=== PATIENT | female | born 1975 | race Caucasian/White ===

== ENCOUNTER 2016-10-28 17:21 | Emergency (ER) | payer MEDICAID ==
[2016-10-28 17:46] VITALS: BP 147/78
--- NOTE | 2016-10-28 20:37 | ERNOTE ---
Date of Service: 10/28/16 Time Seen by Provider: 10/28/16 20:12 Stated Complaint: COUGH Presenting Symptoms:: cough Source: patient Exam Limitations: no limitations Immunizations: IMMUNIZATION HX Immunizations Up to Date Yes History of Influenza Vaccine Yes Hx Pneumococcal Vaccination No Allergies/Adverse Reactions: Allergies azithromycin [From Zithromax] Adverse Reaction (Mild, Verified 10/28/16 17:47) rash ciprofloxacin [From Cipro] Adverse Reaction (Mild, Verified 07/09/16 13:19) "bad diarrhea" ciprofloxacin HCl [From Cipro] Adverse Reaction (Mild, Verified 07/09/16 13:19) "bad diarrhea" doxycycline Adverse Reaction (Mild, Verified 10/28/16 17:47) rash oxycodone HCl [From Percocet] Adverse Reaction (Mild, Verified 10/28/16 17:47) rash Sulfa (Sulfonamide Antibiotics) Adverse Reaction (Mild, Verified 10/28/16 17:47) doesnt work, had it alot as a kid for uti's Home Medications: HOME MEDICATIONS Topiramate [Topamax] 150 mg PO BID 08/23/13 [Last Taken 11/17/14] Medroxyprogesterone Acetate [Depo-Provera Contraceptive] 150 mg IM Q90D [Last Taken Unknown] Albuterol Sulfate [Proair Hfa] 1 puff IH QID PRN 11/01/14 [Last Taken Unknown] Sumatriptan Succinate [Imitrex] 100 mg PO DAILY PRN 11/01/14 [Last Taken Unknown ] Levetiracetam [Keppra] 1,500 mg PO BID 06/23/15 [Last Taken Unknown] Solifenacin Succinate [Vesicare] 5 mg PO DAILY 12/14/15 [Last Taken Unknown] Atorvastatin Calcium [Lipitor] 20 mg PO HS 06/23/16 [Last Taken Unknown] Tizanidine HCl 4 mg PO TID PRN 06/23/16 [Last Taken Unknown] Sulindac 150 mg PO BID 06/25/16 [Last Taken Unknown] ALPRAZolam [Xanax] 0.25 mg PO TID PRN 10/28/16 [Last Taken Unknown] Doxycycline Monohydrate 100 mg PO BID #20 tablet 10/28/16 [Last Taken Unknown] Omeprazole 40 mg PO BID PRN 10/28/16 [Last Taken Unknown] Pregabalin [Lyrica] 150 mg PO BID 10/28/16 [Last Taken Unknown] predniSONE [Prednisone] 3 tab PO DAILY #9 tab 10/28/16 [Last Taken Unknown] - History of Present Ilness Narrative: Pt. comes in with c/o sore throat, sinus congestion, fever, cough, rhinorrhea, and B ear pain. Pt. denies any SOB, CP, NVD, or other symptoms. Pt. denies any prehospital treatment, alleviating factors, or aggravating factors. Review of Systems - Review of Systems Constitutional: Present: fever, chills, fatigue, malaise EYE: Present: no symptoms reported ENT: Present: ear pain, nose congestion, nasal drainage, sore throat Respiratory: Present: shortness of breath, cough, wheezing. Absent: orthopnea, stridor Cardiology: Present: no symptoms reported. Absent: chest pain, palpitations, edema Gastrointestinal/Abdominal: Present: no symptoms reported. Absent: nausea, vomiting, diarrhea Genitourinary: Present: no symptoms reported. Absent: frequency, decreased urinary output Musculoskeletal: Present: no symptoms reported. Absent: back pain, joint pain Skin: Present: no symptoms reported. Absent: rash, change in color Neurological: Present: no symptoms reported. Absent: headache, dizziness/light- headedness All Other Systems: All systems neg except as marked - Patient's Past Medical History Patient History - Medical: Fibromyalgia, GERD, Kidney stone, Migraines, Seizures , UTI'S Patient History - Cardiac/Respiratory: Asthma, Bronchitis, Hypertension, Hyperlipidemia Patient History - Cancer: No Hx of Cancer Patient History - Surgical Procedures: Cholecystectomy, Hysterectomy, T & A, Other - Family History Father Family History - Medical: No pertinent hx Family History - Cardiac/Respiratory: Coronary Heart Disease Sister Family History - Medical: No pertinent hx, Other Family History - Cardiac/Respiratory: No pertinent hx Mother Family History - Medical: No pertinent hx Family History - Cardiac/Respiratory: No pertinent hx - Social History Living Situations: home Does anyone smoke in the home?: Yes Smoking Status: Current every day smoker Alcohol Use: none Drug Use: none Physical Exam - Physical Exam General Appearance: Present: wd/wn, alert, no apparent distress Eye Exam: Normal inspection: bilateral, PERRL: bilateral, EOMI: bilateral Ears, Nose, Throat: Present: nasal congestion, sinus pain/drainage, pharyngeal erythema. Absent: abnormal TM (R), abnormal TM (L) Neck: Present: normal inspection, nontender. Absent: lymphadenopathy (R), lymphadenopathy (L) Respiratory: Present: no respiratory distress, no accessory muscle use, chest nontender, lungs clear, decreased breath sounds Cardiovascular/Chest: Present: regular rate, rhythm, no murmur, normal peripheral pulses Gastrointestinal/Abdominal: Present: normal bowel sounds, nontender, nondistended, soft, no organomegaly Back Exam: Present: normal inspection, normal range of motion, no CVA tenderness , no vertebral tenderness Extremity Exam: Present: normal inspection, non-tender, no edema, normal range of motion Neurological Exam: Present: alert, oriented, normal mood/affect, no motor/ sensory deficits, 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 Absent: pallor, skin rash ED Progress - Date and Time Seen: Date and Time: 10/28/16 20:30 Pt. does not appear particularly ill but she has multiple symptoms for a long time and does have sinus congestion and pharyngitis on exam with bronchitis so will treat with ABX treatment. After this provider finished assessment she called for RN and told RN that she needs fluid because she was dehydrated as she has nausea. She denied this for me and does not appear dehydrated. - Results and Orders Patient's Lab Results:: I have reviewed the patient's lab results. - Vital Signs Patient's Vital Signs:: I have reviewed the patient's vital signs. Vital Signs: Vital Signs 10/28/16 17:39 Temperature 36.6 C Pulse Rate 102 H Respiratory 18 Rate Blood Pressure 147/78 O2 Sat by Pulse 99 Oximetry - Progress/Reassessment Chief Complaint: Upper Respiratory Symptoms Departure - Departure Clinical Impression: Bronchitis Sinusitis Qualifiers: Sinusitis location: frontal Chronicity: acute Recurrence: non-recurrent Qualified Code(s): J01.10 - Acute frontal sinusitis, unspecified Pharyngitis Qualifiers: Pharyngitis/tonsillitis etiology: unspecified etiology Qualified Code(s): J02.9 - Acute pharyngitis, unspecified Condition: Good Instructions: Upper Respiratory Infection, Adult, [id number] Additional Instructions: Please follow up with primary provider in 2-3 days. Referrals: Demetrio Marte MD [Primary Care Provider] - Prescriptions: Doxycycline Monohydrate 100 mg PO BID #20 tablet predniSONE [Prednisone] 3 tab PO DAILY #9 tab
== END 2016-10-28 21:01 | disposition home or self-care (01) ==
LOC: ER 17:21
DX: J20.9 Acute bronchitis, unspecified (principal); J01.10 Acute frontal sinusitis, unspecified; J02.9 Acute pharyngitis, unspecified; F17.210 Nicotine dependence, cigarettes, uncomplicated; Z90.49 Acquired absence of other specified parts of digestive tract; Z90.710 Acquired absence of both cervix and uterus; M79.7 Fibromyalgia

== ENCOUNTER 2017-03-12 21:14 | Emergency (ER) | payer MEDICAID ==
--- OUTSIDE RECORDS SUMMARY | 2017-03-12 22:44 | XMS REPORT | Continuity of Care Document ---
:1975 Author Organization [facility] ([facility]) Address [place] [address] Phone [phone] Care Team Providers Name Role Phone Al Interiano Primary Care Provider [phone] Source Comments This disclosure is being made pursuant to the Care Everywhere program, applicable federal and state laws, and may not contain all informaitonavailable regarding this patient.[facility] ([facility]) Active Allergies and Adverse Reactions Allergen Noted Date Severity Reactions Comments Azithromycin Urticaria (Hives) Doxycycline Urticaria (Hives) Lamotrigine Urticaria (Hives) Lorazepam 09/29/2012 Nausea & Vomiting Oxycodone Urticaria (Hives) Current Medications Prescription Sig. Disp. Refills Start Date End Date Status Levetiracetam (KEPPRA) Take 1,000 mg by Active 1,000 mg tablet mouth 2 times daily. topiramate (TOPAMAX) Take 150 mg by mouth Active 100 mg tablet 2 times daily. hydrOXYzine pamoate Take 25 mg by mouth Active (VISTARIL) 25 mg every 4 hours as capsule needed. LORATADINE (CLARITIN Take by mouth Active PO) daily. ACETAMINOPHEN (TYLENOL Take by mouth as Active PO) needed. norethindrone 5 mg Take 1 Tab by mouth 30 Tab 6 11/02/2012 Active tablet daily. Indications: Add back for Depo-Lupron ATORVASTATIN CALCIUM Take by mouth. Active (LIPITOR PO) HYDROcodone-acetaminoph Take 1 Tab by mouth Active en 5-325 mg per tablet every 6 hours as needed. OXYBUTYNIN CHLORIDE PO Take by mouth. Active polyethylene glycol Take 17 g by mouth 510 g 11 01/06/2013 Active 3350 (MIRALAX) 17 daily. Indications: gram/dose powder CONSTIPATION docusate 100 mg capsule Take 1 Cap by mouth 60 Cap 3 01/06/2013 Active 2 times daily. Indications: CONSTIPATION ACAI/GREEN Take by mouth. Active TEA/GINSNG/CHROMIUM (ACAI WEIGHT CONTROL PO) cyclobenzaprine 10 mg Take 1 Tab by mouth 30 Tab 1 04/13/2013 Active tablet 3 times daily as needed. Indications: FIBROMYALGIA gabapentin 600 mg Take 1 Tab by mouth 90 Tab 3 04/13/2013 Active tablet 3 times daily. Take 1 tablet three times daily Indications: NEUROPATHIC PAIN Active Problems Problem Noted Date Fibromyalgia 01/04/2013 Marijuana abuse 01/04/2013 Seizure disorder 04/13/2012 Overview: Grand Mal Seizures- diagnosed in ; eclampsia Myofascial pain vs pain from adhesions 10/16/2011 Tobacco user Endometriosis Overview: s/p hyst& bso, has ovarian remnants. Stable complex cyst on ultrasound, possibly tubal? Plan is for no more ultrasounds unless sx change. Migraine, unspecified, without mention of intractable migraine without mention of status migrainosus Overview: w/ aura asthma Immunizations Name Dates Previously Given Next Due Influenza, PF 09/29/2012 Pneumococcal Polysaccharide, PPSV23 (Pneumovax 23) 12/06/2012 Tdap 09/29/2012 Social History Tobacco Use Types Packs/Day Years Used Date Current Every Day Smoker 1 22 Smokeless Tobacco: Never Used Tobacco Cessation:Ready to Quit: No; Counseling Given: Yes Comments: Alcohol Use Drinks/Week oz/Week Comments No 0 Standard drinks or equivalent 0.0 Last Filed Vital Signs Vital Sign Reading Time Taken Blood Pressure 150/90 04/13/2013 8:00 AM CDT Pulse 95 04/13/2013 8:00 AM CDT Temperature 36.5 C (97.7 F) 01/06/2013 9:25 AM CDT Respiratory Rate 16 01/04/2013 11:46 AM CDT Height 1.626 m (5' 4.02") 01/04/2013 11:46 AM CDT Weight 80.1 kg (176 lb 9.4 oz) 04/13/2013 8:00 AM CDT Body Mass Index 30.3 04/13/2013 8:00 AM CDT Oxygen Saturation 99% 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
[2017-03-12] MEDS ORDERED: KETOROLAC TROMETHAMINE 30 MG/ML VIAL IV ONE (22:47)
[2017-03-12] MEDS ORDERED: NORMAL SALINE 1,000 ML IV ONE (22:47)
[2017-03-12] MEDS ORDERED: METHYLPREDNISOLONE SOD SUCC/PF 125 MG/2 ML VIAL IV ONE (22:47)
[2017-03-12] MEDS ORDERED: ORPHENADRINE CITRATE 30 MG/ML VIAL IV ONE (22:47)
[2017-03-12] MEDS ORDERED: ONDANSETRON HCL/PF 2 MG/ML VIAL IV ONE (22:47)
--- NOTE | 2017-03-12 22:54 | ERNOTE ---
Headache ER HPI - General Presenting Symptoms: headache Time Seen by Provider: 03/12/17 22:35 Source: patient Exam Limitations: no limitations - Immun/Allergies/Home Medications Immunizations: IMMUNIZATION HX Immunizations Up to Date Yes History of Influenza Vaccine Yes Hx Pneumococcal Vaccination Yes Allergies/Adverse Reactions: Allergies azithromycin [From Zithromax] Adverse Reaction (Mild, Verified 10/28/16 17:47) rash ciprofloxacin [From Cipro] Adverse Reaction (Mild, Verified 07/09/16 13:19) "bad diarrhea" ciprofloxacin HCl [From Cipro] Adverse Reaction (Mild, Verified 07/09/16 13:19) "bad diarrhea" doxycycline Adverse Reaction (Mild, Verified 10/28/16 17:47) rash oxycodone HCl [From Percocet] Adverse Reaction (Mild, Verified 10/28/16 17:47) rash Sulfa (Sulfonamide Antibiotics) Adverse Reaction (Mild, Verified 10/28/16 17:47) doesnt work, had it alot as a kid for uti's Home Medications: HOME MEDICATIONS Topiramate [Topamax] 150 mg PO BID 08/23/13 [Last Taken 11/17/14] Medroxyprogesterone Acetate [Depo-Provera Contraceptive] 150 mg IM Q90D [Last Taken Unknown] Albuterol Sulfate [Proair Hfa] 1 puff IH QID PRN 11/01/14 [Last Taken Unknown] levETIRAcetam [Keppra] 1,500 mg PO BID 06/23/15 [Last Taken Unknown] Solifenacin Succinate [Vesicare] 5 mg PO DAILY 12/14/15 [Last Taken Unknown] Atorvastatin Calcium [Lipitor] 20 mg PO HS 06/23/16 [Last Taken Unknown] tiZANidine HCL [Tizanidine HCl] 4 mg PO TID PRN 06/23/16 [Last Taken Unknown] ALPRAZolam [Xanax] 0.25 mg PO TID PRN 10/28/16 [Last Taken Unknown] Omeprazole 40 mg PO BID PRN 10/28/16 [Last Taken Unknown] Pregabalin [Lyrica] 150 mg PO BID 10/28/16 [Last Taken Unknown] Cephalexin Monohydrate [Keflex] 500 mg PO DAILY 03/12/17 [Last Taken Unknown] Diclofenac Sodium [Voltaren] 50 mg PO TID PRN 03/12/17 [Last Taken Unknown] Rizatriptan Benzoate [Maxalt] 5 mg PO PRN PRN 03/12/17 [Last Taken Unknown] - Pain Pain Score: 8 - History of Present Illness Narrative: has had headache for 4 days has tried her home medications and has not had any results Review of Systems - Review of Systems Constitutional: Absent: recent illness, fever, chills EYE: Absent: eye pain, vision changes ENT: Absent: nose congestion, sore throat Respiratory: Present: no symptoms reported Cardiology: Present: no symptoms reported Gastrointestinal/Abdominal: Present: nausea. Absent: vomiting, abdominal pain Genitourinary: Present: no symptoms reported Musculoskeletal: Present: no symptoms reported Skin: Present: no symptoms reported Neurological: Present: no symptoms reported Endocrine: Present: no symptoms reported Hematologic/Lymphatic: Present: no symptoms reported Psych: Present: no symptoms reported - Patient's Past Medical History Patient History - Medical: Fibromyalgia, GERD, Kidney stone, Migraines, Seizures , UTI'S Patient History - Cardiac/Respiratory: Asthma, Hypertension, Hyperlipidemia Patient History - Cancer: No Hx of Cancer Patient History - Surgical Procedures: Cholecystectomy, Hysterectomy, T & A, Other Patient History - Other: None - Family History Father Family History - Medical: No pertinent hx Family History - Cardiac/Respiratory: Coronary Heart Disease Sister Family History - Medical: No pertinent hx, Other Family History - Cardiac/Respiratory: No pertinent hx Mother Family History - Medical: No pertinent hx Family History - Cardiac/Respiratory: No pertinent hx - Social History Living Situations: home Abuse History: No History of abuse Psych History: No pertinent hx Does anyone smoke in the home?: Yes Smoking Status: Current every day smoker Patient requests Smoking Cessation Consult: No Initiate information on Smoking Cessation: No Alcohol Use: none Drug Use: none - Immunizations Immunizations Up to Date: Yes Hx Pneumococcal Vaccination: Yes History of Influenza Vaccine: Yes Physical Exam - Physical Exam General Appearance: Present: wd/wn, alert, mild distress Eye Exam: Normal inspection: bilateral, PERRL: bilateral, EOMI: bilateral Ears, Nose, Throat: Present: normal ENT inspection, normal pharynx Neck: Present: normal inspection, nontender, supple Respiratory: Present: no respiratory distress, normal breath sounds, lungs clear Cardiovascular/Chest: Present: regular rate, rhythm, no murmur, normal peripheral pulses Gastrointestinal/Abdominal: Present: nontender, nondistended, soft Back Exam: Present: normal inspection, normal range of motion Extremity Exam: Present: normal inspection, normal range of motion, no edema Neurological Exam: Present: alert, oriented, normal mood/affect, no motor/ sensory deficits Skin Exam: Present: normal color, warm/dry Lymphatic Exam: Present: no adenopathy ED Progress - Vital Signs Patient's Vital Signs:: I have reviewed the patient's vital signs. Vital Signs: Vital Signs 03/12/17 22:00 Temperature 37.8 C H Pulse Rate 85 Respiratory 18 Rate Blood Pressure 134/103 O2 Sat by Pulse 98 Oximetry - Progress/Reassessment Chief Complaint: Headache Progress:: Improved Departure Clinical Impression: Headache Qualifiers: Headache type: tension-type Headache chronicity pattern: acute headache Intractability: not intractable Qualified Code(s): G44.209 - Tension-type headache, unspecified, not intractable - Departure Disposition: Home Follow Up Needed Condition: Good Instructions: Recurrent Migraine Headache Additional Instructions: See your regular doctor if headache returns. Return to ER as needed Referrals: Demetrio Marte MD [Primary Care Provider] -
[2017-03-12] MEDS ORDERED: KETOROLAC TROMETHAMINE 30 MG/ML VIAL ONE (23:12)
[2017-03-12] MEDS ORDERED: METHYLPREDNISOLONE SOD SUCC/PF 125 MG/2 ML VIAL ONE (23:12)
[2017-03-12] MEDS ORDERED: ONDANSETRON HCL/PF 2 MG/ML VIAL ONE (23:12)
[2017-03-12] MEDS ORDERED: ORPHENADRINE CITRATE 30 MG/ML VIAL ONE (23:13)
[2017-03-13 00:27] VITALS: BP 148/92
== END 2017-03-13 00:25 | disposition home or self-care (01) ==
LOC: ER 21:14
DX: G44.209 Tension-type headache, unspecified, not intractable (principal); M79.7 Fibromyalgia; K21.9 Gastro-esophageal reflux disease without esophagitis; Z87.442 Personal history of urinary calculi; Z72.0 Tobacco use; J45.909 Unspecified asthma, uncomplicated; I10 Essential (primary) hypertension; E78.5 Hyperlipidemia, unspecified; Z87.440 Personal history of urinary (tract) infections

== ENCOUNTER 2017-03-24 15:27 | Emergency (ER) | payer MEDICAID ==
[2017-03-24 15:43] VITALS: BP 134/98
--- OUTSIDE RECORDS SUMMARY | 2017-03-24 16:58 | XMS REPORT | Continuity of Care Document ---
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
[2017-03-24] MEDS ORDERED: diphenhydrAMINE HCL 50 MG/ML VIAL ONE (17:08)
[2017-03-24] MEDS ORDERED: KETOROLAC TROMETHAMINE 30 MG/ML VIAL ONE (17:09)
[2017-03-24] MEDS ORDERED: METOCLOPRAMIDE HCL 5 MG/ML VIAL ONE (17:09)
== END 2017-03-24 18:53 | disposition home or self-care (01) ==
LOC: ER 15:27
DX: G43.009 Migraine without aura, not intractable, without status migrainosus (principal)

== ENCOUNTER 2017-06-10 16:15 | Emergency (ER) | payer SELFPAY ==
[2017-06-10 16:33] VITALS: BP 143/85
--- NOTE | 2017-06-10 17:03 | ERNOTE ---
Upper Extremity HPI - Narrative Date of Service: 06/10/17 - General Extremities Pain Location: wrist: right Time Seen by Provider: 06/10/17 16:42 Source: patient Exam Limitations: no limitations - Immun/Allergies/Home Medications Immunizations: IMMUNIZATION HX Immunizations Up to Date Yes History of Influenza Vaccine No Hx Pneumococcal Vaccination No Allergies/Adverse Reactions: Allergies Allergy/AdvReac Type Severity Reaction Status Date / Time azithromycin [From Zithromax] AdvReac Mild rash Verified 06/10/17 16:33 ciprofloxacin [From Cipro] AdvReac Mild "bad Verified 06/10/17 16:33 diarrhea" ciprofloxacin HCl AdvReac Mild "bad Verified 06/10/17 16:33 [From Cipro] diarrhea" doxycycline AdvReac Mild rash Verified 06/10/17 16:33 Sulfa (Sulfonamide AdvReac Mild doesnt Verified 06/10/17 16:33 Antibiotics) work, had it alot as a kid for uti's Home Medications: HOME MEDICATIONS Topiramate [Topamax] 150 mg PO BID 08/23/13 [Last Taken 11/17/14] Medroxyprogesterone Acetate [Depo-Provera Contraceptive] 150 mg IM Q90D [Last Taken Unknown] Albuterol Sulfate [Proair Hfa] 1 puff IH QID PRN 11/01/14 [Last Taken Unknown] levETIRAcetam [Keppra] 1,500 mg PO BID 06/23/15 [Last Taken Unknown] Solifenacin Succinate [Vesicare] 5 mg PO DAILY 12/14/15 [Last Taken Unknown] Atorvastatin Calcium [Lipitor] 20 mg PO HS 06/23/16 [Last Taken Unknown] tiZANidine HCL [Tizanidine HCl] 4 mg PO TID PRN 06/23/16 [Last Taken Unknown] ALPRAZolam [Xanax] 0.25 mg PO TID PRN 10/28/16 [Last Taken Unknown] Omeprazole 40 mg PO BID PRN 10/28/16 [Last Taken Unknown] Pregabalin [Lyrica] 150 mg PO BID 10/28/16 [Last Taken Unknown] Cephalexin Monohydrate [Keflex] 500 mg PO DAILY 03/12/17 [Last Taken Unknown] Diclofenac Sodium [Voltaren] 50 mg PO TID PRN 03/12/17 [Last Taken Unknown] Naproxen [Naprosyn] 500 mg PO BID PRN #60 tab 06/10/17 [Last Taken Unknown] - History of Present Illness Narrative: Pt. comes in with c/o R wrist pain after falling in her garage yesterday. Pt. states that she placed Ice on it and it helped but did not relieve the pain. Pt. denies any numbness, tingling, SOB, CP, NVD, fever, recent illness but states that movement exacerbates the pain. Review of Systems - Review of Systems Constitutional: Present: no symptoms reported. Absent: recent illness, fever, chills, weakness, fatigue, malaise EYE: Present: no symptoms reported ENT: Present: no symptoms reported Respiratory: Present: no symptoms reported. Absent: shortness of breath, cough , wheezing Cardiology: Present: no symptoms reported. Absent: chest pain, palpitations, edema Gastrointestinal/Abdominal: Present: no symptoms reported Genitourinary: Present: no symptoms reported Musculoskeletal: Present: joint pain - R wrist Neurological: Present: no symptoms reported. Absent: headache, dizziness/light- headedness, numbness, tingling - Patient's Past Medical History Patient History - Medical: Fibromyalgia, GERD, Kidney stone, Migraines, Seizures , UTI'S Patient History - Cardiac/Respiratory: Asthma, Hyperlipidemia Patient History - Cancer: No Hx of Cancer Patient History - Surgical Procedures: Cholecystectomy, Hysterectomy, T & A, Other Patient History - Other: None LMP (females 10-50): other - Family History Father Family History - Medical: No pertinent hx Family History - Cardiac/Respiratory: Coronary Heart Disease Sister Family History - Medical: No pertinent hx, Other Family History - Cardiac/Respiratory: No pertinent hx Mother Family History - Medical: No pertinent hx Family History - Cardiac/Respiratory: No pertinent hx - Social History Living Situations: home Abuse History: No History of abuse Psych History: No pertinent hx Does anyone smoke in the home?: Yes Alcohol Use: none Drug Use: none - Immunizations Immunizations Up to Date: Yes Hx Pneumococcal Vaccination: No History of Influenza Vaccine: No Physical Exam - Physical Exam General Appearance: Present: wd/wn, alert, no apparent distress Head Exam: Present: normal inspection, no evidence of injury Eye Exam: Normal inspection: bilateral Neck: Absent: lymphadenopathy (R), lymphadenopathy (L) Respiratory: Present: no respiratory distress, normal breath sounds, no accessory muscle use, chest nontender, lungs clear Cardiovascular/Chest: Present: regular rate, rhythm, no murmur, normal peripheral pulses Back Exam: Present: normal inspection Extremity Exam: Present: normal range of motion - passive pain with active movement., no edema. Absent: joint swelling Neurological Exam: Present: alert, oriented, normal mood/affect, no motor/ sensory deficits Skin Exam: Present: normal color, warm/dry. Absent: pallor, skin rash ED Progress - Date and Time Seen: Date and Time: 06/10/17 17:21 L wrsit xray interpreted by this provider as smooth appearing bony island off of the ulna on oblique view while this could be fracture feel that it is most likely calcification involving the ulnar tendon. 06/10/17 17:23 - Vital Signs Patient's Vital Signs:: I have reviewed the patient's vital signs. Vital Signs: Vital Signs 06/10/17 16:30 Temperature 36.8 C Pulse Rate 118 H Respiratory 16 Rate Blood Pressure 143/85 O2 Sat by Pulse 97 Oximetry - Progress/Reassessment Chief Complaint: Upper Extremity Injury/Problem Progress:: Unchanged Departure Clinical Impression: Tendonitis - Departure Disposition: Home self-care Condition: Good Instructions: De Quervain Tenosynovitis Additional Instructions: Please wear brace at all times and follow up with your primary in 2-3 days. Referrals: Demetrio Marte MD [Primary Care Provider] - Prescriptions: Naproxen [Naprosyn] 500 mg PO BID PRN #60 tab PRN Reason: Pain
== END 2017-06-10 17:37 | disposition home or self-care (01) ==
LOC: ER 16:15
PROC: 2W3EX1Z Immobilization of Right Hand using Splint (ICD-10-PCS; principal; 2017-06-10)
DX: M77.9 Enthesopathy, unspecified (principal); W19.XXXA Unspecified fall, initial encounter; Y93.9 Activity, unspecified; Y92.008 Other place in unspecified non-institutional (private) residence as the place of occurrence of the external cause

== ENCOUNTER 2017-07-16 13:12 | Emergency (ER) | payer MEDICAID ==
--- NOTE | 2017-07-16 13:42 | ERNOTE ---
Neuro HPI ER Record Presenting Symptoms: other Time Seen by Provider: 07/16/17 13:23 Source: patient Exam Limitations: no limitations Immunizations: IMMUNIZATION HX Immunizations Up to Date Yes History of Influenza Vaccine No Hx Pneumococcal Vaccination No Allergies/Adverse Reactions: Allergies Allergy/AdvReac Type Severity Reaction Status Date / Time azithromycin [From Zithromax] AdvReac Mild rash Verified 07/16/17 13:27 ciprofloxacin [From Cipro] AdvReac Mild "bad Verified 07/16/17 13:27 diarrhea" ciprofloxacin HCl AdvReac Mild "bad Verified 07/16/17 13:27 [From Cipro] diarrhea" doxycycline AdvReac Mild rash Verified 07/16/17 13:27 Sulfa (Sulfonamide AdvReac Mild doesnt Verified 07/16/17 13:27 Antibiotics) work, had it alot as a kid for uti's Home Medications: HOME MEDICATIONS Topiramate [Topamax] 150 mg PO BID 08/23/13 [Last Taken 11/17/14] Medroxyprogesterone Acetate [Depo-Provera Contraceptive] 150 mg IM Q90D [Last Taken Unknown] levETIRAcetam [Keppra] 1,500 mg PO BID 06/23/15 [Last Taken Unknown] Solifenacin Succinate [Vesicare] 5 mg PO DAILY 12/14/15 [Last Taken Unknown] Atorvastatin Calcium [Lipitor] 20 mg PO HS 06/23/16 [Last Taken Unknown] tiZANidine HCL [Tizanidine HCl] 4 mg PO TID PRN 06/23/16 [Last Taken Unknown] ALPRAZolam [Xanax] 0.25 mg PO TID PRN 10/28/16 [Last Taken Unknown] Omeprazole 40 mg PO BID PRN 10/28/16 [Last Taken Unknown] Pregabalin [Lyrica] 150 mg PO BID 10/28/16 [Last Taken Unknown] Methenamine Mandelate 500 mg PO DAILY 07/16/17 [Last Taken Unknown] Nortriptyline HCl [Pamelor] 50 mg PO HS 07/16/17 [Last Taken Unknown] Promethazine HCl [Phenergan (Promethazine)] 25 mg PO PRN PRN 07/16/17 [Last Taken Unknown] - History of Present Illness Narrative: Patient has a history of seizures, is on medication and gets seizures about once a year. She states that they are brought on by stress and she has a lot of stress recently. She denies any recent illness, no missed medications, no head injury. A friend reports that she was sitting with friends when the patient started to have a generalized seizure lasting about five minutes with about 5 minutes of confusion afterwards. Patient feels back to normal now, denies any incontinence , no injury Review of Systems - Review of Systems Constitutional: Absent: recent illness, fever EYE: Absent: double vision ENT: Present: nasal drainage. Absent: sore throat Respiratory: Present: cough. Absent: shortness of breath Cardiology: Absent: chest pain Gastrointestinal/Abdominal: Absent: nausea, vomiting, diarrhea, abdominal pain Genitourinary: Present: no symptoms reported. Absent: frequency, dysuria Musculoskeletal: Absent: back pain Neurological: Present: See HPI, headache, seizure - Patient's Past Medical History Patient History - Medical: Fibromyalgia, GERD, Kidney stone, Migraines, Seizures , UTI'S Patient History - Cardiac/Respiratory: Asthma, Hyperlipidemia Patient History - Cancer: No Hx of Cancer Patient History - Surgical Procedures: Cholecystectomy, Hysterectomy, T & A, Other Patient History - Other: None - Family History Father Family History - Medical: No pertinent hx Family History - Cardiac/Respiratory: Coronary Heart Disease Sister Family History - Medical: No pertinent hx, Other Family History - Cardiac/Respiratory: No pertinent hx Mother Family History - Medical: No pertinent hx Family History - Cardiac/Respiratory: No pertinent hx - Social History Living Situations: home Abuse History: No History of abuse Psych History: No pertinent hx Does anyone smoke in the home?: Yes Have you smoked in the past 12 months: Yes Alcohol Use: none Drug Use: none - Immunizations Immunizations Up to Date: Yes Hx Pneumococcal Vaccination: No History of Influenza Vaccine: No Physical Exam - Physical Exam General Appearance: Present: wd/wn, alert, no apparent distress Head Exam: Present: normal inspection, no evidence of injury Eye Exam: Normal inspection: bilateral, PERRL: bilateral Ears, Nose, Throat: Present: normal ENT inspection, normal pharynx Neck: Present: normal inspection, nontender, supple, full range of motion Respiratory: Present: no respiratory distress, normal breath sounds, no accessory muscle use, lungs clear Cardiovascular/Chest: Present: regular rate, rhythm, no murmur Gastrointestinal/Abdominal: Present: nontender, nondistended Extremity Exam: Present: no edema Neurological Exam: Present: alert, oriented, normal mood/affect, no motor/ sensory deficits Skin Exam: Present: normal color, warm/dry ED Progress - Results and Orders Patient's Lab Results:: I have reviewed the patient's lab results. - Vital Signs Patient's Vital Signs:: I have reviewed the patient's vital signs. Vital Signs: Vital Signs 07/16/17 07/16/17 13:14 13:28 Temperature 36.6 C 36.6 C Pulse Rate 118 H 112 H Respiratory 34 H 16 Rate Blood Pressure 160/90 160/93 O2 Sat by Pulse 95 95 Oximetry - Progress/Reassessment Chief Complaint: Seizure Activity Progress Note-Subjective: 07/16/17 15:09 discussed test results, UA possible infection vs contamination, discussed treating vs waiting for culture as patient has no symptoms and allergies to multiple meds, patient would like to wait Departure Clinical Impression: Seizure - Departure Disposition: Home self-care Condition: Good Instructions: Seizure, Adult, [id number] Additional Instructions: follow up with your neurologist as scheduled next month
[2017-07-16 13:48] LABS: Hemoglobin 12.3 gm/dL (12.5-16.0); Mean Cell Volume 89.4 fl (78-100); Mean Corpuscular Hemoglobin 29.7 pg (27-31); Mean Corpuscular Hgb Conc 33.2 g/dl (32-36); Mean Platelet Volume 9.7 fl (6.0-9.5); Neutrophil # 6.5 K/mm3 (1.3-6.0); Neutrophil % 65.9 % (42-75.0); Platelet Count 344 K/mm3 (150-450); Red Blood Count 4.14 M/mm3 (4.2-5.4); Red Cell Distribution Width 13.1 % (11.5-14.0); White Blood Count 9.9 K/mm3 (4.0-10.5)
[2017-07-16] MEDS ORDERED: ACETAMINOPHEN 325 MG TABLET PO ONE (13:56)
[2017-07-16 13:57] LABS: Urine Bilirubin Negative (NEGATIVE); Urine Blood Negative /ul (NEGATIVE); Urine Ketone Negative (NEGATIVE); Urine Protein 30 mg/dL (NEGATIVE); Urine Specific Gravity >=1.030 SP.GR. (1.005-1.010); Urine Urobilinogen Normal (NORMAL)
[2017-07-16] MEDS ORDERED: ACETAMINOPHEN 325 MG TABLET ONE (13:57)
[2017-07-16 14:03] LABS: Albumin * 3.7 gm/dl (3.4-5.0); Anion Gap 19.9 mmol/L (6.8-13.8); BUN/Creatinine Ratio 7.2 (9.0-21.6); Bilirubin, Total 0.3 mg/dL (0.0-1.1); Ca. Corrected For Albumin 8.8 mg/dL (8.4-10.2); Calcium * 8.9 mg/dL (7.9-10.9); Carbon Dioxide 18.7 mmol/L (24-32.6); Potassium 3.6 mmol/L (3.4-4.6); Total Protein 6.8 gm/dL (6.2-8.2)
[2017-07-16 14:07] LABS: Urine Appearance Cloudy; Urine Bacteria 4+; Urine Color Dark Yellow; Urine Nitrite Positive (NEGATIVE); Urine RBC None Seen /hpf (0-5)
[2017-07-16 14:12] LABS: Cocaine Ur Negative (NEGATIVE); Urine Barbiturate Negative (NEGATIVE); Urine Opiates Negative (NEGATIVE); Urine PCP Negative (NEGATIVE)
[2017-07-16 14:13] LABS: Urine Benzodiazepines Positive (NEGATIVE); Urine THC Positive (NEGATIVE)
[2017-07-16 22:59] VITALS: BP 133/90
== END 2017-07-16 15:32 | disposition home or self-care (01) ==
LOC: ER 13:12
DX: R56.9 Unspecified convulsions (principal); M79.7 Fibromyalgia; K21.9 Gastro-esophageal reflux disease without esophagitis; E78.5 Hyperlipidemia, unspecified; F17.200 Nicotine dependence, unspecified, uncomplicated

== ENCOUNTER 2017-08-14 16:12 | Emergency (ER) | payer MEDICAID ==
--- NOTE | 2017-08-14 16:50 | ERNOTE ---
ER Female HPI Date of Service: 08/14/17 Stated Complaint: RT SIDE PAIN Presenting Symptoms: other - R flank pain Time Seen by Provider: 08/14/17 16:33 Source: patient Exam Limitations: no limitations Immunizations: IMMUNIZATION HX Immunizations Up to Date Yes History of Influenza Vaccine No Hx Pneumococcal Vaccination No Allergies/Adverse Reactions: Allergies azithromycin [From Zithromax] Adverse Reaction (Mild, Verified 08/14/17 16:32) rash ciprofloxacin [From Cipro] Adverse Reaction (Mild, Verified 08/14/17 16:32) "bad diarrhea" ciprofloxacin HCl [From Cipro] Adverse Reaction (Mild, Verified 08/14/17 16:32) "bad diarrhea" doxycycline Adverse Reaction (Mild, Verified 08/14/17 16:32) rash Sulfa (Sulfonamide Antibiotics) Adverse Reaction (Mild, Verified 08/14/17 16:32) doesnt work, had it alot as a kid for uti's Home Medications: HOME MEDICATIONS Topiramate [Topamax] 150 mg PO BID 08/23/13 [Last Taken 11/17/14] Medroxyprogesterone Acetate [Depo-Provera Contraceptive] 150 mg IM Q90D [Last Taken Unknown] levETIRAcetam [Keppra] 1,500 mg PO BID 06/23/15 [Last Taken Unknown] Solifenacin Succinate [Vesicare] 5 mg PO DAILY 12/14/15 [Last Taken Unknown] Atorvastatin Calcium [Lipitor] 20 mg PO HS 06/23/16 [Last Taken Unknown] tiZANidine HCL [Tizanidine HCl] 4 mg PO TID PRN 06/23/16 [Last Taken Unknown] ALPRAZolam [Xanax] 0.25 mg PO TID PRN 10/28/16 [Last Taken Unknown] Omeprazole 40 mg PO BID PRN 10/28/16 [Last Taken Unknown] Pregabalin [Lyrica] 150 mg PO BID 10/28/16 [Last Taken Unknown] Methenamine Mandelate 500 mg PO DAILY 07/16/17 [Last Taken Unknown] Nortriptyline HCl [Pamelor] 50 mg PO HS 07/16/17 [Last Taken Unknown] - History of Present Illness Narrative: Pt. comes in with c/o R flank pain for 6 hours that is accompanied by nausea. Pt. denies any fever, SOB, CP, vomiting, diarrhea, dysuria, alleviating or aggravating factors and denies any prehospital treatment. Timing: Present: constant, getting worse Quality: Present: moderate Onset Location: Present: right flank Radiation: Present: groin Activities at Onset: Present: none Prior Abdominal Problems: Present: similar symptoms Sexual [place] History: Present: not active Modifying Factors - (Improves): Present: other - denies Modifying Factors - (Worsens): Present: other - denies Associated Symptoms: Present: polyuria Prior Treatment: Present: treated by physician - Dr Kelley Review of Systems - Review of Systems Constitutional: Present: no symptoms reported. Absent: recent illness, fever, chills, weakness, fatigue, malaise EYE: Present: no symptoms reported ENT: Present: no symptoms reported Respiratory: Present: no symptoms reported. Absent: shortness of breath, cough , wheezing Cardiology: Present: no symptoms reported. Absent: chest pain, palpitations, edema Gastrointestinal/Abdominal: Present: nausea, abdominal pain. Absent: vomiting, diarrhea Genitourinary: Present: no symptoms reported Musculoskeletal: Present: no symptoms reported. Absent: back pain, joint pain Skin: Present: no symptoms reported Neurological: Present: no symptoms reported. Absent: headache, dizziness/light- headedness, numbness, tingling Endocrine: Present: no symptoms reported Hematologic/Lymphatic: Present: no symptoms reported. Absent: easy bruising, easy bleeding All Other Systems: All systems neg except as marked - Patient's Past Medical History Patient History - Medical: Fibromyalgia, GERD, Kidney stone, Migraines, Seizures , UTI'S Patient History - Cardiac/Respiratory: Asthma, Hyperlipidemia Patient History - Cancer: No Hx of Cancer Patient History - Surgical Procedures: Cholecystectomy, Hysterectomy, T & A, Other Patient History - Other: None - Family History Father Family History - Medical: No pertinent hx Family History - Cardiac/Respiratory: Coronary Heart Disease Sister Family History - Medical: No pertinent hx, Other Family History - Cardiac/Respiratory: No pertinent hx Mother Family History - Medical: No pertinent hx Family History - Cardiac/Respiratory: No pertinent hx - Social History Living Situations: home Abuse History: No History of abuse Psych History: No pertinent hx - Immunizations Immunizations Up to Date: Yes Hx Pneumococcal Vaccination: No History of Influenza Vaccine: No Physical Exam - Physical Exam General Appearance: Present: wd/wn, alert, no apparent distress Head Exam: Present: normal inspection, no evidence of injury Eye Exam: Normal inspection: bilateral Respiratory: Present: no respiratory distress, normal breath sounds, no accessory muscle use, chest nontender, lungs clear Cardiovascular/Chest: Present: regular rate, rhythm, no murmur, normal peripheral pulses Gastrointestinal/Abdominal: Present: tenderness - R flank Back Exam: Present: normal range of motion, no vertebral tenderness, CVA tenderness (R), CVA tenderness (L) Extremity Exam: Present: normal inspection Neurological Exam: Present: alert, oriented, normal mood/affect, no motor/ sensory deficits Skin Exam: Present: normal color, warm/dry ED Progress - Date and Time Seen: Date and Time: 08/14/17 17:39 Although pt. UCS with epithelial celols she has nitrates which is why although contaminated I feel pt has a UTI. - Results and Orders Patient's Lab Results:: I have reviewed the patient's lab results. - Vital Signs Patient's Vital Signs:: I have reviewed the patient's vital signs. Vital Signs: Vital Signs 08/14/17 16:27 Temperature 36.5 C Pulse Rate 109 H Respiratory 12 Rate Blood Pressure 131/85 O2 Sat by Pulse 98 Oximetry - Progress/Reassessment Chief Complaint: Genitourinary Problem Departure Clinical Impression: Urinary tract infection Qualifiers: Urinary tract infection type: acute cystitis Hematuria presence: without hematuria Qualified Code(s): N30.00 - Acute cystitis without hematuria - Departure Disposition: Home self-care Condition: Good Instructions: Pyelonephritis, Adult, [id number] Additional Instructions: Please follow up with primary provider in 2-3 days. Referrals: Demetrio Marte MD [Primary Care Provider] -
[2017-08-14 17:25] LABS: Urine Appearance Cloudy; Urine Bilirubin Negative (NEGATIVE); Urine Blood Negative /ul (NEGATIVE); Urine Color Yellow; Urine Ketone Negative (NEGATIVE); Urine Nitrite Positive (NEGATIVE); Urine Protein Negative (NEGATIVE); Urine Urobilinogen Normal (NORMAL)
[2017-08-14 17:26] LABS: Urine Bacteria 4+; Urine RBC None Seen /hpf (0-5); Urine WBC 0-5 /hpf (0-5)
[2017-08-14] MEDS ORDERED: KETOROLAC TROMETHAMINE 60 MG/2 ML VIAL IM ONE ×2 (17:38→17:46)
[2017-08-14 18:20] VITALS: BP 149/82
== END 2017-08-14 17:51 | disposition home or self-care (01) ==
LOC: ER 16:12
DX: N30.00 Acute cystitis without hematuria (principal); M79.7 Fibromyalgia; K21.9 Gastro-esophageal reflux disease without esophagitis; Z87.442 Personal history of urinary calculi; E78.5 Hyperlipidemia, unspecified; Z87.440 Personal history of urinary (tract) infections

== ENCOUNTER 2017-09-03 09:41 | Emergency (ER) | payer MEDICAID ==
[2017-09-03 09:53] VITALS: BP 99/79
[2017-09-03] MEDS ORDERED: KETOROLAC TROMETHAMINE 60 MG/2 ML VIAL IM ONE ×2 (10:02→10:07)
--- NOTE | 2017-09-03 10:32 | ERNOTE ---
Back Pain ER HPI Presenting Symptoms: injury/pain to back Time Seen by Provider: 09/03/17 09:57 Source: patient Exam Limitations: no limitations Immunizations: IMMUNIZATION HX Immunizations Up to Date Yes History of Influenza Vaccine No Hx Pneumococcal Vaccination Yes Allergies/Adverse Reactions: Allergies azithromycin [From Zithromax] Adverse Reaction (Mild, Verified 09/03/17 09:53) rash ciprofloxacin [From Cipro] Adverse Reaction (Mild, Verified 09/03/17 09:53) "bad diarrhea" ciprofloxacin HCl [From Cipro] Adverse Reaction (Mild, Verified 09/03/17 09:53) "bad diarrhea" doxycycline Adverse Reaction (Mild, Verified 09/03/17 09:53) rash Sulfa (Sulfonamide Antibiotics) Adverse Reaction (Mild, Verified 09/03/17 09:53) doesnt work, had it alot as a kid for uti's Home Medications: HOME MEDICATIONS Topiramate [Topamax] 150 mg PO BID 08/23/13 [Last Taken 11/17/14] Medroxyprogesterone Acetate [Depo-Provera Contraceptive] 150 mg IM Q90D [Last Taken Unknown] levETIRAcetam [Keppra] 1,500 mg PO BID 06/23/15 [Last Taken Unknown] Solifenacin Succinate [Vesicare] 5 mg PO DAILY 12/14/15 [Last Taken Unknown] Atorvastatin Calcium [Lipitor] 20 mg PO HS 06/23/16 [Last Taken Unknown] tiZANidine HCL [Tizanidine HCl] 4 mg PO TID PRN 06/23/16 [Last Taken Unknown] ALPRAZolam [Xanax] 0.25 mg PO TID PRN 10/28/16 [Last Taken Unknown] Omeprazole 40 mg PO BID PRN 10/28/16 [Last Taken Unknown] Pregabalin [Lyrica] 150 mg PO BID 10/28/16 [Last Taken Unknown] Methenamine Mandelate 500 mg PO DAILY 07/16/17 [Last Taken Unknown] Nortriptyline HCl [Pamelor] 50 mg PO HS 07/16/17 [Last Taken Unknown] Cyclobenzaprine HCl [Flexeril] 10 mg PO TID PRN #30 tab 09/03/17 [Last Taken Unknown] Naproxen [Naprosyn] 500 mg PO BID #60 tablet 09/03/17 [Last Taken Unknown] Narrative: Patient's was attempting to pop her back for her and she felt a pop in her right lateral rib cage and now has pain with deep breath, palpation and movement. Incident was several days ago she rates the pain as moderate in severity. Timing: Reports: constant Quality/Severity: Reports: moderate Location of pain: Reports: mid back - rib cage area Activities at Onset: Reports: other - has been attempting to adjust her back Recent Injury?: Reports: yes Possible Precipitating Factor: Reports: none - as noted Modifying Factors - (Improves): Reports: nothing Modifying Factors - (Worsens): Reports: cough/deep breaths Associated Symptoms: Reports: none Review of Systems - Review of Systems Constitutional: Present: See HPI EYE: Present: no symptoms reported ENT: Present: no symptoms reported Respiratory: Present: other - chest discomfort with deep breath and movement Cardiology: Present: chest pain - palpation and coughing even irritates the right lateral rib cage area, in the inferior region Gastrointestinal/Abdominal: Present: no symptoms reported Genitourinary: Present: no symptoms reported Musculoskeletal: Present: no symptoms reported Skin: Present: no symptoms reported Neurological: Present: no symptoms reported Endocrine: Present: no symptoms reported Hematologic/Lymphatic: Present: no symptoms reported Psych: Present: no symptoms reported - Patient's Past Medical History Patient History - Medical: Anxiety, Fibromyalgia, GERD, Kidney stone, Migraines , Seizures, UTI'S Patient History - Cardiac/Respiratory: Asthma, Hyperlipidemia Patient History - Cancer: No Hx of Cancer Patient History - Surgical Procedures: Cholecystectomy, Hysterectomy, T & A, Other Patient History - Other: None LMP (females 10-50): hysterectomy - Family History Father Family History - Medical: No pertinent hx Family History - Cardiac/Respiratory: Coronary Heart Disease Sister Family History - Medical: No pertinent hx, Other Family History - Cardiac/Respiratory: No pertinent hx Mother Family History - Medical: No pertinent hx Family History - Cardiac/Respiratory: No pertinent hx - Social History Living Situations: home Abuse History: No History of abuse Psych History: No pertinent hx Smoking Status: Current every day smoker Alcohol Use: none Drug Use: none, marijuana - Immunizations Immunizations Up to Date: Yes Hx Pneumococcal Vaccination: Yes History of Influenza Vaccine: No Physical Exam - Physical Exam General Appearance: Present: wd/wn, alert, moderate distress Head Exam: Present: normal inspection Eye Exam: Normal inspection: bilateral, PERRL: bilateral Ears, Nose, Throat: Present: normal ENT inspection, H, normal pharynx Neck: Present: normal inspection, nontender Respiratory: Present: no respiratory distress, normal breath sounds, no accessory muscle use, lungs clear, chest tenderness, other - patient having some splinting with deep breath and cough Cardiovascular/Chest: Present: regular rate, rhythm, no murmur, normal peripheral pulses Gastrointestinal/Abdominal: Present: normal bowel sounds, nontender, nondistended, soft, no organomegaly Rectal Exam: Present: deferred Back Exam: Present: normal inspection, normal range of motion Extremity Exam: Present: normal inspection, non-tender, no edema, normal range of motion Neurological Exam: Present: alert, oriented, normal mood/affect Skin Exam: Present: normal color, warm/dry Lymphatic Exam: Present: no adenopathy ED Progress - Vital Signs Patient's Vital Signs:: I have reviewed the patient's vital signs. Vital Signs: Vital Signs 09/03/17 09:47 Temperature 36.3 C L Pulse Rate 109 H Respiratory 8 L Rate Blood Pressure 99/79 O2 Sat by Pulse 100 Oximetry - X-Ray X-Ray #1 X-Ray: chest Interpretation: Reviewed by me X-Ray #2 X-Ray: ribs Interpretation: Reviewed by me - Progress/Reassessment Chief Complaint: Back Pain Plan - Plan Plan: X-ray examination of the chest and ribs did not reveal any fracture being present. She does appear however to have a chest wall strain and will be started on NSAIDs and muscle relaxers and she is to follow-up with her family physician in a week to assess her progress. Departure Clinical Impression: Strain of chest wall Qualifiers: Encounter type: initial encounter Qualified Code(s): S29.011A - Strain of muscle and tendon of front wall of thorax, initial encounter - Departure Disposition: Home self-care Condition: Good Instructions: Chest Wall Pain, [id number] Referrals: Demetrio Marte MD [Primary Care Provider] - Prescriptions: Cyclobenzaprine HCl [Flexeril] 10 mg PO TID PRN #30 tab PRN Reason: MUSCLE SPASMS Naproxen [Naprosyn] 500 mg PO BID #60 tablet
== END 2017-09-03 10:51 | disposition home or self-care (01) ==
LOC: ER 09:41
DX: S29.011A Strain of muscle and tendon of front wall of thorax, initial encounter (principal); Z87.440 Personal history of urinary (tract) infections; Z87.442 Personal history of urinary calculi; E78.5 Hyperlipidemia, unspecified; F41.9 Anxiety disorder, unspecified; R56.9 Unspecified convulsions; K21.9 Gastro-esophageal reflux disease without esophagitis; X50.9XXA Other and unspecified overexertion or strenuous movements or postures, initial encounter